=== PATIENT | male | born 1970 | race African-American/Black ===

== ENCOUNTER 2019-01-05 02:19 | Emergency (ER) | payer MEDICAID, MEDICARE ==
[~2019-01-05] VITALS: Ht 177.8 cm; Wt 84.0 kg
[2019-01-05 05:52] VITALS: BP 161/101
== END 2019-01-05 05:55 | disposition home or self-care (01) ==
LOC: ER 02:19
DX: H61.21 Impacted cerumen, right ear (principal); E11.22 Type 2 diabetes mellitus with diabetic chronic kidney disease; I12.0 Hypertensive chronic kidney disease with stage 5 chronic kidney disease or end stage renal disease; N18.6 End stage renal disease; Z99.2 Dependence on renal dialysis
CPT/HCPCS: 99283

== ENCOUNTER 2019-02-20 21:59 | Emergency (ER) | payer MEDICARE | END 2019-02-21 01:00 | disposition left against medical advice (07) | LOC: ER 21:59 | DX: R31.9 Hematuria, unspecified (principal); Z53.21 Procedure and treatment not carried out due to patient leaving prior to being seen by health care provider ==